=== PATIENT | male | born 1970 | race Two or more races ===

== ENCOUNTER 2019-11-17 13:26 | Emergency (ER) | payer OTHER ==
[~2019-11-17] VITALS: Ht 162.6 cm; Wt 54.4 kg
[2019-11-17] MEDS ORDERED: SODIUM CHLORIDE 0.9% 1000ML 1,000 ML IV STA (13:48)
[2019-11-17] MEDS ORDERED: PANTOPRAZOLE 40 MG 10ML VIAL IV STA (13:48)
[2019-11-17] MEDS ORDERED: IOPAMIDOL 370 MG/ML 200 ML INFUS..BTL INJ ONE (14:04)
[2019-11-17] MEDS ORDERED: PANTOPRAZOLE 40 MG 10ML VIAL ONE (14:24)
[2019-11-17] MEDS ORDERED: SODIUM CHLORIDE 0.9% 1000ML 1,000 ML ONE (14:24)
--- NOTE | 2019-11-17 14:57 | Diagnostic Imaging Report ---
EXAMINATION: CT of the abdomen and pelvis with contrast. TECHNIQUE: Helical CT images of the abdomen and pelvis were performed from the lung bases to the lesser trochanters after the intravenous administration of 100 cc of Isovue 300 and the oral administration of none. Coronal and sagittal reformatted images were obtained. Dose modulation, iterative reconstruction, and/or weight based adjustment of the mA/kV was utilized to reduce the radiation dose to as low as reasonably achievable. COMPARISON: None. CLINICAL HISTORY:Abdominal pain DISCUSSION: ABDOMEN/PELVIS: LOWER THORAX:Unremarkable. HEPATOBILIARY: No focal hepatic lesions. No intra-or extrahepatic biliary ductal dilation. The gallbladder is normal. SPLEEN: No splenomegaly. PANCREAS: No focal masses or ductal dilatation. ADRENALS: No adrenal nodules. KIDNEYS/URETERS: Simple cyst in the right kidney. No hydronephrosis. No calculi. PELVIC ORGANS/BLADDER: Prostate is enlarged with central calcifications. PERITONEUM/RETROPERITONEUM: No free air or fluid. LYMPH NODES: No intra-abdominal, retroperitoneal, pelvic or inguinal lymphadenopathy. VESSELS: Atherosclerotic disease. GI TRACT: No obstruction. Appendix normal. BONES AND SOFT TISSUE: No bony destructive lesions. No soft tissue abnormalities. IMPRESSION: No acute CT finding. Signed by: Dr. Martin Mancilla M.D. on 11/17/2019 2:54 PM
[2019-11-17] MEDS ORDERED: PANTOPRAZOLE SO40 MG PO (15:24)
[2019-11-17] MEDS ORDERED: MAALOX MAXIMUM355 ML PO (15:24)
[2019-11-17 15:42] VITALS: BP 113/67
== END 2019-11-17 15:45 | disposition home or self-care (01) ==
LOC: FSED 13:26
DX: R10.13 Epigastric pain (principal); K92.2 Gastrointestinal hemorrhage, unspecified; Z86.010 Personal history of colon polyps; F17.210 Nicotine dependence, cigarettes, uncomplicated
CPT/HCPCS: 74177; 80053; 81003; 85025; 96374; 99283; J7030; Q9967